=== PATIENT | female | born 1970 | race Caucasian/White ===

== ENCOUNTER → 2020-12-07 | Outpatient (CLI) | payer BC ==
[~2020-12-07] MED LIST: CITA40TA12 PO; LEVO150T5 PO
--- NOTE | 2020-12-07 11:58 | KCIC ---
Bilateral digital screening mammograms with 3-D tomosynthesis: Reason for examination: Routine baseline screening. Bilateral mammograms in CC and oblique projections were obtained with 2-D imaging and 3-D tomosynthes is imaging on a Siemens Inspiration unit and reviewed on the workstation. Interpretation was made joel cordova the benefit of CAD. The skin and nipples show no abnormalities. No abnormal axillary lymph nodes are seen. The breast par enchyma shows scattered fatty and fibroglandular density. (Breast density: Category B.) in the right breast, there are small nodular densities at the 9:30 position 3.5 cm from the nipple measuring 4.5 m m in size and at the 6:30 position 4.5 cm from the nipple measuring 3.3 mm in size. In the left breas t, there is a small nodular density seen at the 6:00 position approximately 5.5 cm from the nipple an d measuring 3.7 mm in size. In the left breast, there also appears to be a small parenchymal density at approximately the 2:00 position 6 cm from the nipple measuring 4.5 mm in size. Further evaluation bilaterally with breast ultrasound is recommended. There are no other dominant masses, suspicious [place] cifications or architectural distortion. Impression: Small nodular densities bilaterally at approximately the 6:30 and 9:30 positions of the right breast and at the 2:00 and 6:00 positions of the left breast. Recommend further evaluation with ultrasound. BI-RADS Category 0: Incomplete. Needs additional imaging evaluation. "Our facility is accredited by the [employer] Mammography [employer]." This patient's information has been entered into a reminder system for the patient to be notified wit art the results of her examination and a target date for the next mammogram. Electronically signed by: Gisele Bustamante MD (12/07/2020 11:55 AM) [email or web address]
== END ==
LOC: KCIC MAMMO 10:56
PROVIDERS: ATTEND Family Medicine
DX: Z12.31 Encounter for screening mammogram for malignant neoplasm of breast (principal)
CPT/HCPCS: 77063; 77067

== ENCOUNTER → 2020-12-20 | Outpatient (CLI) | payer BC ==
--- NOTE | 2020-12-20 11:54 | KCIC ---
Bilateral breast ultrasound: Reason for examination: Nodular densities on screening mammogram. Comparison is made to mammographic exam dated 12/07/2020. Ultrasound examination was performed in the areas of mammographic concern and at the axilla bilateral ly. In the right breast at the 6:30 position 3 cm from the nipple, there is a small 3 mm hypoechoic fibro cystic type lesion which has benign appearance. At the 9:30 position 3.5 cm from the nipple, there is also a 3.7 mm hypoechoic fibrocystic lesion. No suspicious-appearing nodules are seen. No abnormal a ppearing lymph nodes are seen in the right axilla. In the left breast, no discrete cystic or solid nodules are seen. No abnormal appearing lymph nodes a re seen in the left axilla. IMPRESSION: Small subcentimeter fibrocystic lesions at the 6:30 and 9:30 positions of the right breast which eugenie espond to the areas of mammographic concern. Recommend 6 month follow-up with ultrasound. No discrete abnormality seen in the left breast. Recommend 6 month follow-up with left breast mammogr am. BI-RADS Category 3: Probably benign. "Our facility is accredited by the [employer] Mammography [employer]." This patient's information has been entered into a reminder system for the patient to be notified wit h the results of her examination and a target date for the next mammogram. Electronically signed by: Gisele Bustamante MD (12/20/2020 11:51 AM) [email or web address]
== END ==
LOC: KCIC US 10:30
PROVIDERS: ATTEND Family Medicine
DX: R92.8 Other abnormal and inconclusive findings on diagnostic imaging of breast (principal); N64.89 Other specified disorders of breast
CPT/HCPCS: 76641

== ENCOUNTER → 2021-06-18 | Outpatient (CLI) | payer BC ==
--- NOTE | 2021-06-18 15:58 | KCIC ---
EXAM: Chest, 2 views. HISTORY: Chronic congestion. Productive cough. COMPARISON: None. FINDINGS: 2 views of the chest are obtained. There is no infiltrate, pleural effusion or pneumothorax . There is slight blunting of the costophrenic angles likely due to slight basilar pleural thickening . The heart is normal in size. IMPRESSION: No acute pulmonary finding. Electronically signed by: Beata Goode MD (06/18/2021 3:55 PM) [id number]
== END ==
LOC: KCIC 14:28
PROVIDERS: ATTEND Nurse Practitioner
DX: R09.89 Other specified symptoms and signs involving the circulatory and respiratory systems (principal); F17.200 Nicotine dependence, unspecified, uncomplicated; R05 Cough; R09.82 Postnasal drip
CPT/HCPCS: 71046